=== PATIENT | male | born 1945 | race Caucasian/White ===

== ENCOUNTER 2022-07-06 19:32 | Outpatient (REF) | payer OTHER, MEDICARE, SELFPAY ==
[2022-07-06 21:49] LABS: Anion Gap 7.8 mmol/L (3-11); BUN 29 mg/dL (7-18); CO2 30.2 mmol/L (21.0-32.0); CREATININE 1.3 mg/dL (0.70-1.30); Calcium 9.9 mg/dL (8.5-10.1); Chloride 102 mmol/L (98-107); Estimated GFR 56.93 (mL/min/1.73m2); Glucose 95 mg/dL (74-106); Potassium 3.7 mmol/L (3.5-5.1); Sodium 140 mmol/L (136-145)
[2022-07-08 09:27] LABS: HIV-1/2 Ag & Ab Screen Negative (Negative)
[2022-07-08 09:42] LABS: Hepatitis C Ab w Rflx HCV PCR Negative (Negative)
== END 2022-07-06 19:33 | disposition home or self-care (01) ==
LOC: NCHCN 19:32
PROVIDERS: Visit Provider Nurse Practitioner Family
DX: Z00.00 Encounter for general adult medical examination without abnormal findings (principal); Z11.4 Encounter for screening for human immunodeficiency virus [HIV]; Z11.59 Encounter for screening for other viral diseases
CPT/HCPCS: 80048; 86803; 87389

== ENCOUNTER 2023-01-12 16:53 | Outpatient (REF) | payer OTHER, MEDICARE, SELFPAY ==
[2023-01-13 10:39] LABS: Anion Gap 7.3 mmol/L (3-11); BUN 31 mg/dL (7-18); CO2 28.7 mmol/L (21.0-32.0); CREATININE 1.4 mg/dL (0.70-1.30); Calcium 9.4 mg/dL (8.5-10.1); Calculated LDL 109 mg/dL (<100); Chloride 101 mmol/L (98-107); Cholesterol 174 mg/dL (<200); Estimated GFR 51.77 (mL/min/1.73m2); Glucose 85 mg/dL (74-106); HDL Cholesterol 51 mg/dL (40-60); Potassium 4.1 mmol/L (3.5-5.1); Sodium 137 mmol/L (136-145); Triglyceride 73 mg/dL (<150)
[2023-01-13 19:53] LABS: PSA, Screening 3.2 ng/mL (<=6.5)
== END 2023-01-12 16:54 | disposition home or self-care (01) ==
LOC: NCHCN 16:53
PROVIDERS: Visit Provider Nurse Practitioner Family
DX: I10 Essential (primary) hypertension (principal); E78.5 Hyperlipidemia, unspecified; Z12.5 Encounter for screening for malignant neoplasm of prostate
CPT/HCPCS: 80048; 80061; 84153

== ENCOUNTER 2023-04-13 09:00 | Outpatient (REF) | payer OTHER, MEDICARE, SELFPAY ==
--- NOTE | 2023-04-13 18:00 | SKI_PTH ---
PATIENT: Warren Kincaid LOC: [facility]#:[id number] AGE/SX: 77/M ROOM: RE04/13/[address]: Anitha Dong : 1945 BED: DIS: 04/14/2023 SPEC #: [id number] RECD: 04/14/23 17:02 STATUS: WILVER PARKER #: [id number] CAMPBELL: 04/13/23 18:[address]: Anitha Dong DEPT: Surgical Specimen RECD BY: Joseline Betts Tissues: 1 - SKIN BIOPSY(SHAVE/PUNCH) 2 - SKIN BIOPSY(SHAVE/PUNCH) Procedures: SKIN LEVEL 4 Comments: [id number]
== END 2023-04-14 09:29 | disposition home or self-care (01) ==
LOC: NCHCN 09:00
PROVIDERS: Visit Provider Nurse Practitioner Family
DX: L82.1 Other seborrheic keratosis (principal); L57.0 Actinic keratosis
CPT/HCPCS: 88305

== ENCOUNTER 2023-08-09 17:46 | Outpatient (REF) | payer MEDICARE, SELFPAY ==
[2023-08-09 15:47] LABS: Anion Gap 4.4 mmol/L (3-11); BUN 28 mg/dL (7-18); CO2 32.6 mmol/L (21.0-32.0); CREATININE 1.6 mg/dL (0.70-1.30); Calcium 9.7 mg/dL (8.5-10.1); Chloride 101 mmol/L (98-107); Glucose 96 mg/dL (74-106); Potassium 3.5 mmol/L (3.5-5.1); Sodium 138 mmol/L (136-145)
== END 2023-08-09 17:47 | disposition home or self-care (01) ==
LOC: NCHCN 17:46
PROVIDERS: Visit Provider Nurse Practitioner Family
DX: R79.89 Other specified abnormal findings of blood chemistry (principal)
CPT/HCPCS: 80048

== ENCOUNTER 2023-09-14 10:31 | Outpatient (REF) | payer MEDICARE, SELFPAY ==
[2023-09-14 14:28] LABS: Anion Gap 7.2 mmol/L (3-11); BUN 20 mg/dL (7-18); CO2 28.8 mmol/L (21.0-32.0); CREATININE 1.5 mg/dL (0.70-1.30); Calcium 9.9 mg/dL (8.5-10.1); Chloride 104 mmol/L (98-107); Estimated GFR 47.65 (mL/min/1.73m2); Glucose 90 mg/dL (74-106); Potassium 4.3 mmol/L (3.5-5.1); Sodium 140 mmol/L (136-145)
== END 2023-09-14 10:32 | disposition home or self-care (01) ==
LOC: NCHCN 10:31
PROVIDERS: PCP Nurse Practitioner Family; Visit Provider Nurse Practitioner Family
DX: I10 Essential (primary) hypertension (principal)
CPT/HCPCS: 80048

== ENCOUNTER 2024-03-28 08:25 | Outpatient (REF) | payer MEDICARE, SELFPAY ==
[2024-03-28 15:41] LABS: Anion Gap 4.4 mmol/L (3-11); BUN 27 mg/dL (7-18); CO2 29.6 mmol/L (21.0-32.0); CREATININE 1.5 mg/dL (0.70-1.30); Calcium 9.5 mg/dL (8.5-10.1); Calculated LDL 84 mg/dL (<100); Chloride 104 mmol/L (98-107); Cholesterol 145 mg/dL (<200); Estimated GFR 47.36 (mL/min/1.73m2); Glucose 96 mg/dL (74-106); HDL Cholesterol 45 mg/dL (40-60); Sodium 138 mmol/L (136-145); Triglyceride 84 mg/dL (<150)
== END 2024-03-28 08:26 | disposition home or self-care (01) ==
LOC: NCHCN 08:25
PROVIDERS: PCP Nurse Practitioner Family; Visit Provider Nurse Practitioner Family
DX: E78.5 Hyperlipidemia, unspecified (principal); N18.9 Chronic kidney disease, unspecified
CPT/HCPCS: 80048; 80061

== ENCOUNTER 2025-03-12 16:48 | Outpatient (REF) | payer MEDICARE, SELFPAY ==
[2025-03-12 20:58] LABS: Abs Immature Grans 0.02 10^3/uL (0.0-0.06); HCT 29.5 % (40.0-50.0); HGB 9.4 g/dL (13.5-17.5); Immature Grans % 0.4 %; MCH 32.0 pg (27.0-33.0); MCHC 31.9 % (32.0-36.0); MCV 100 fL (80-95); MPV 9.6 fL (8.0-11.0); Platelet Count 456 10^3/uL (130-400); RBC 2.94 10^6/uL (4.36-5.78); RDW 14.8 % (11.8-14.1); RDW-SD 54.4 fL; WBC 5.00 10^3/uL (4.4-10.8)
[2025-03-12 21:01] LABS: Anion Gap 7.5 mmol/L (3-11); BUN 24 mg/dL (7-18); CO2 29.5 mmol/L (21.0-32.0); Calcium 9.3 mg/dL (8.5-10.1); Chloride 101 mmol/L (98-107); Estimated GFR 37.82 (mL/min/1.73m2); Glucose 96 mg/dL (74-106); Potassium 4.8 mmol/L (3.5-5.1); Sodium 138 mmol/L (136-145)
== END 2025-03-12 16:49 | disposition home or self-care (01) ==
LOC: NCHCN 16:48
PROVIDERS: PCP Nurse Practitioner Family; Visit Provider Nurse Practitioner Family
DX: N17.9 Acute kidney failure, unspecified (principal)
CPT/HCPCS: 80048; 85025

== ENCOUNTER 2025-06-17 19:20 | Outpatient (REF) | payer MEDICARE, SELFPAY ==
[2025-06-17 21:30] LABS: Anion Gap 8.0 mmol/L (3-11); BUN 30 mg/dL (7-18); CO2 29.0 mmol/L (21.0-32.0); Calcium 9.5 mg/dL (8.5-10.1); Chloride 103 mmol/L (98-107); Estimated GFR 35.44 (mL/min/1.73m2); Glucose 92 mg/dL (74-106); Potassium 4.4 mmol/L (3.5-5.1); Sodium 140 mmol/L (136-145)
[2025-06-17 21:40] LABS: COMMENT (LAB VIEW ONLY) 90.67 mg/dL; Microalb ug/mg Crea 31.1 ug/mg Cr
== END 2025-06-17 19:21 | disposition home or self-care (01) ==
LOC: NCHCN 19:20
PROVIDERS: PCP Nurse Practitioner Family; Visit Provider Nurse Practitioner Family
DX: I25.5 Ischemic cardiomyopathy (principal)
CPT/HCPCS: 80048; 82043; 82570

== ENCOUNTER 2025-07-08 13:32 | Outpatient (REF) | payer MEDICARE, SELFPAY ==
[2025-07-08 15:01] LABS: Anion Gap 8.0 mmol/L (3-11); BUN 17 mg/dL (7-18); CO2 27.0 mmol/L (21.0-32.0); Calcium 9.3 mg/dL (8.5-10.1); Chloride 103 mmol/L (98-107); Glucose 78 mg/dL (74-106); Potassium 4.4 mmol/L (3.5-5.1); Sodium 138 mmol/L (136-145)
== END 2025-07-08 13:33 | disposition home or self-care (01) ==
LOC: NCHCN 13:32
PROVIDERS: PCP Nurse Practitioner Family; Visit Provider Nurse Practitioner Family
DX: N18.9 Chronic kidney disease, unspecified (principal)
CPT/HCPCS: 80048